=== PATIENT | female | born 1965 | race Caucasian/White ===

== ENCOUNTER 2016-10-20 16:32 | Emergency (ER) | payer MEDICAID ==
[2016-10-20 16:42] VITALS: RESP 16; TEMP 98.2
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
[2016-10-20] MEDS ORDERED: methylPREDNISolone SOD SUCC 125 MG/2 ML VIAL IVP ONE (17:28)
[2016-10-20] MEDS ORDERED: IOPAMIDOL (ISOVUE 370) 100 ML BTL IV ONE (17:39)
[2016-10-20 17:49] LABS: % IMMATURE GRANULYOCYTES 0.6 % (0.0-1.1); ABSOLUTE IMMATURE GRANULOCYTES 0.06 10^3/uL (0.00-0.10); ADD DIFF? NO; ADD MORPH? NO; ADD SCAN? NO; ATYPICAL LYMPHOCYTE FLAG 0 (0-99); FRAGMENT RBC FLAG 0 (0-99); HEMATOCRIT 35.5 % (38.0-47.0); HEMOGLOBIN 11.9 g/dL (12.6-16.3); LEFT SHIFT FLG 0 (0-99); LIPEMIA HEMOLYSIS FLAG 80 (0-99); MEAN CELL HEMOGLOBIN 30.1 pg (27.9-34.1); MEAN CELL HEMOGLOBIN CONCENTR. 33.5 g/dL (32.4-36.7); MEAN CELL VOLUME 89.6 fL (81.5-99.8); MEAN PLATELET VOLUME 8.5 fL (8.7-11.7); PLATELET CLUMPS FLAG 10 (0-99); PLATELET COUNT 232 10^3/uL (150-400); RED BLOOD CELL COUNT 3.96 10^6/uL (4.18-5.33)
[2016-10-20 17:57] LABS: INR 0.94 (0.83-1.16); PROTIME(PATIENT) 12.4 SEC (12.0-15.0)
[2016-10-20 18:06] LABS: CALCIUM 9.2 mg/dL (8.5-10.4); POTASSIUM 3.8 mEq/L (3.5-5.2)
--- NOTE | 2016-10-20 18:49 | CT ---
CT Pulmonary Angiogram Clinical Indications: Shortness of breath and hemoptysis in a 51-year-old female. Technique: Thinly collimated multidetector helical CT imaging was performed through the chest while 90 mL of Isovue-370 were injected intravenously without complication. The images were obtained at 4 mm thickness and reconstructed at 1.5 mm thickness. Sagittal and coronal reconstructions were perform ed. The examination is reviewed on the workstation by the interpreting physician at multiple window/l evel settings. Dose reduction techniques were utilized. Comparison to the previous CT pulmonary angio gram April 24, 2016. Findings: Chest: No focal pulmonary consolidation is seen. There is minimal atelectasis in the lower lungs. Hea rt size is normal. No pericardial or pleural effusions are seen. There is minimal fluid noted in the trachea consistent with a history of recent hemoptysis. No associated mass is seen. Hilar and media stinal contours are normal. There are no masses or noncalcified pulmonary nodules. The upper abdomen is negative for acute abnormality on this arterial phase study. The gallbladder is surgically absent. CT Pulmonary Angiogram: The pulmonary arterial system is well opacified. No intraluminal filling d efects are seen to suggest acute or chronic pulmonary embolic disease. No vascular malformations are seen. The thoracic aorta has a normal contour without evidence of aneurysm or dissection. Impression: 1. No evidence of pulmonary embolic disease. 2. See above report for additional findings. A preliminary report was called to [facility].
[2016-10-20 19:31] VITALS: BP 145/98; PULSE 59; O2SAT 98
== END 2016-10-20 19:29 | disposition home or self-care (01) ==
LOC: CED 16:32
DX: J40 Bronchitis, not specified as acute or chronic (principal)
CPT/HCPCS: 71275-PO; 80048-PO; 84703-PO; 85025-PO; 85610-PO; 85730-PO; 96374-PO; 99215-PO; G0463-PO; Q9967